=== PATIENT | female | born 1970 | race Caucasian/White ===

== ENCOUNTER → 2016-10-23 | Outpatient (CLI) | payer BC ==
[2016-10-23 10:51] LABS: ABSOLUTE EOSINOPHILS # (AUTO) 0.1 10^3/uL (0.0-0.6); ABSOLUTE LYMPHOCYTES (AUTO) 1.5 10^3/uL (0.5-4.7); ABSOLUTE MONOCYTES (AUTO) 0.3 10^3/uL (0.1-1.4); ABSOLUTE NEUT (AUTO) 2.9 10^3/uL (1.7-8.2); BASOPHILS % (AUTO) 0.8 % (0-2); EOSINOPHILS % (AUTO) 2.9 % (0-6); HEMOGLOBIN 12.1 g/dL (12.0-15.5); HGB HCT DIFFERENCE 0.3; LYMPHOCYTES % (AUTO) 30.6 % (13-45); MEAN CORPUSCULAR HEMOGLOBIN 28.7 pg (27.0-33.4); MEAN CORPUSCULAR HGB CONC 33.6 g/dL (32.0-36.0); MEAN CORPUSCULAR VOLUME 85 fl (80-97); MONOCYTES % (AUTO) 5.6 % (3-13); RED BLOOD COUNT 4.22 10^6/uL (3.72-5.28); RED CELL DISTRIBUTION WIDTH 12.6 % (11.5-14.0); SEGMENTED NEUTROPHILS % (AUTO) 60.1 % (42-78); WHITE BLOOD COUNT 4.8 10^3/uL (4.0-10.5)
[2016-10-23 11:16] LABS: ALANINE AMINOTRANSFERASE 31 U/L (9-52); ALBUMIN 4.3 g/dL (3.5-5.0); ALKALINE PHOSPHATASE 54 U/L (38-126); ANION GAP 9 (5-19); ASPARTATE AMINO TRANSFERASE 23 U/L (14-36); BILIRUBIN,TOTAL 0.7 mg/dL (0.2-1.3); BLOOD UREA NITROGEN 11 mg/dL (7-20); CALCIUM 10.1 mg/dL (8.4-10.2); CARBON DIOXIDE 26 mmol/L (22-30); CHLORIDE 109 mmol/L (98-107); CREATININE RESULT 0.87 mg/dL (0.52-1.25); GLUCOSE 93 mg/dL (75-110); POTASSIUM 4.7 mmol/L (3.6-5.0); SODIUM 143.7 mmol/L (137-145); TOTAL PROTEIN 7.3 g/dL (6.3-8.2)
== END ==
LOC: OD 09:31
PROVIDERS: ATTEND Nurse Practitioner
DX: E53.8 Deficiency of other specified B group vitamins (principal); D50.9 Iron deficiency anemia, unspecified; N92.0 Excessive and frequent menstruation with regular cycle; E55.9 Vitamin D deficiency, unspecified
CPT/HCPCS: 36415; 80053; 82306; 82607; 82728; 83540; 83550; 85025

== ENCOUNTER 2016-12-14 11:07 | Emergency (ER) | payer BC ==
[2016-12-14] MEDS ORDERED: IPRATROPIUM/ALBUTEROL 0.5-2.5 MG/3 ML AMPUL NEB ONE (11:19)
--- NOTE | 2016-12-14 11:22 | ER Document Report ---
ED Medical Screen (RME) - General Chief Complaint: Breathing Difficulty Stated Complaint: COUGH,PAIN IN RIB TRAVEL OUTSIDE OF THE [place] IN LAST 30 DAYS: No - HPI Notes: 12/14/16 11:22 Cough and rib pain - Related Data Allergies/Adverse Reactions: acetaminophen [From Percocet] Adverse Reaction (Verified 12/14/16 11:09) Headache oxycodone [From Percocet] Adverse Reaction (Verified 12/14/16 11:09) Headache Past Medical History Renal/ Medical History: Denies: Hx Peritoneal Dialysis GI Medical History: Reports: Hx Gastroesophageal Reflux Disease, Hx Endoscopy Musculoskeltal Medical History: Reports Hx Arthritis Past Surgical History: Reports: Hx Adenoidectomy, Hx Cholecystectomy, Hx Myringotomy, Hx Tonsillectomy, Hx Tubal Ligation - Immunizations Hx Diphtheria, Pertussis, Tetanus Vaccination: Yes Review of Systems - Review of Systems Respiratory: Cough Physical Exam - Vital signs Vitals: Temp Pulse Resp BP Pulse Ox 98.1 F 91 18 144/89 H 98 12/14/16 11:11 12/14/16 11:11 12/14/16 11:11 12/14/16 11:11 12/14/16 11:11 - Respiratory Respiratory status: No respiratory distress Chest status: Nontender Breath sounds: Normal Chest palpation: Normal Course - Vital Signs Vital signs: Temp Pulse Resp BP Pulse Ox 98.1 F 91 18 144/89 H 98 12/14/16 11:11 12/14/16 11:11 12/14/16 11:11 12/14/16 11:11 12/14/16 11:11
--- NOTE | 2016-12-14 11:48 | ER Document Report ---
HPI - HPI Patient complains to provider of: cough Onset: Other - 2 days Onset/Duration: Persistent Quality of pain: Achy Pain Level: 1 Context: Patient presents complaining of cough and congestion for the past 2 days. Patient complains of lower rib tenderness when coughing only. Patient denies any fever. Associated Symptoms: Nonproductive cough. denies: Fever Exacerbated by: Coughing Relieved by: Remaining still Similar symptoms previously: Yes Recently seen / treated by doctor: No - ROS ROS below otherwise negative: Yes Systems Reviewed and Negative: Yes All other systems reviewed and negative - CONSTITUTIONAL Constitutional: DENIES: Fever, Chills - EENT EENT: REPORTS: Congestion. DENIES: Sore Throat - RESPIRATORY Respiratory: REPORTS: Coughing. DENIES: Trouble Breathing - GASTROINTESTINAL Gastrointestinal: DENIES: Abdominal Pain, Nausea, Patient vomiting - MUSCULOSKELETAL Musculoskeletal: DENIES: Back Pain - DERM Skin Color: Normal Skin Problems: None Past Medical History - General Information source: Patient - Social History Smoking Status: Never Smoker Frequency of alcohol use: Occasional Drug Abuse: None Occupation: nursing teacher Lives with: Family Family History: Arthritis, CAD, DM, Hyperlipidemia, Hypertension, Malignancy. denies: COPD, CVA, Thyroid Disfunction Patient has suicidal ideation: No Patient has homicidal ideation: No Renal/ Medical History: Denies: Hx Peritoneal Dialysis GI Medical History: Reports: Hx Gastroesophageal Reflux Disease, Hx Endoscopy Musculoskeltal Medical History: Reports Hx Arthritis Past Surgical History: Reports: Hx Adenoidectomy, Hx Cholecystectomy, Hx Myringotomy, Hx Tonsillectomy, Hx Tubal Ligation - Immunizations Hx Diphtheria, Pertussis, Tetanus Vaccination: Yes Vertical Provider Document - CONSTITUTIONAL Agree With Documented VS: Yes Exam Limitations: No Limitations General Appearance: WD/WN, No Apparent Distress - INFECTION CONTROL TRAVEL OUTSIDE OF THE [place] IN LAST 30 DAYS: No - HEENT HEENT: Atraumatic, Normocephalic - NECK Neck: Normal Inspection, Supple - RESPIRATORY Respiratory: No Respiratory Distress, Wheezing - With cough only. negative: Chest Non-Tender - Lower anterior rib tenderness with cough only O2 Sat by Pulse Oximetry: 98 - CARDIOVASCULAR Cardiovascular: Regular Rate, Regular Rhythm, No Murmur - BACK Back: Normal Inspection - MUSCULOSKELETAL/EXTREMETIES Musculoskeletal/Extremeties: COLLINS MONTOYA - NEURO Level of Consciousness: Awake, Alert, Appropriate Motor/Sensory: No Motor Deficit - DERM Integumentary: Warm, Dry, No Rash Course - Re-evaluation Re-evalutation: 12/14/16 12:05 Wheezing resolved after nebulizer treatment. Discussed results of patient's x- ray with patient. Discussed worsening signs or symptoms that patient should return immediately for. Patient verbalized understanding and agrees with plan of care. - Vital Signs Vital signs: Temp Pulse Resp BP Pulse Ox 98.1 F 91 18 144/89 H 98 12/14/16 11:11 12/14/16 11:11 12/14/16 11:11 12/14/16 11:11 12/14/16 11:11 - Diagnostic Test Radiology reviewed: Image reviewed, Reports reviewed Discharge - Discharge Clinical Impression: Elevated blood pressure reading, Bronchospasm Upper respiratory infection Qualifiers: URI type: unspecified URI Qualified Code(s): J06.9 - Acute upper respiratory infection, unspecified Condition: Stable Disposition: HOME, SELF-CARE Additional Instructions: Return immediately for any new or worsening symptoms Followup with your primary care provider, call tomorrow to make a followup appointment Your blood pressure was mildly elevated today, recheck with your primary doctor in 2 days to have this reevaluated. UPPER RESPIRATORY ILLNESS: You have a viral infection of the respiratory passages -- a "cold." This common infection causes nasal congestion, drainage, and often sore throat and cough. It is highly contagious. The disease usually lasts about 10 to 14 days. There is no "cure" for the viral infection -- it must run its course. If there is a complication, such as bacterial infection in the nose, sinuses, middle ear, or bronchial tubes, antibiotics may be required. The antibiotics won't affect the virus. Drink plenty of fluids. A humidifier may help. An expectorant medication or decongestant may make you more comfortable. Use acetaminophen or ibuprofen for fever or aches. See the doctor if fever persists over two days, if there is any significant worsening of your symptoms, or if you simply fail to improve as expected. BRONCHOSPASM: You have tightness in the bronchial tubes, called bronchospasm. This often occurs with bronchial infections. Allergies, inhaled chemicals, and polluted or cold air can also provoke bronchospasm. It's more likely in patients with asthma in the family. Emergency treatment of bronchospasm may include adrenaline shots or bronchodilator aerosol. You may feel lightheaded and have a rapid pulse for an hour or two. Rest and get plenty of fluids. At home, we'll treat you with a bronchodilator inhaler. Antibiotics and corticosteroids may be required for some patients. Until you recover, avoid chemical fumes, dusts, pollens, and exercising in very cold or dry air. If you smoke, stop now!! If you develop a fever, increased wheezing, chest pain, or severe shortness of breath, you should contact the doctor immediately. INHALED BRONCHODILATORS: You have received a treatment of and/or prescription for an inhaled bronchodilator -- a medication which stimulates the airways in the lung to dilate. This improves the flow of air in asthma, bronchitis, and emphysema. These medicines have some similarity to adrenaline, and can cause similar side effects: shakiness, racing heart, and a sense of nervousness. These side effects decrease with time. Contact your doctor if these side effects are severe. Do not over-use the medicine. Too-frequent use of the inhaler may make it ineffective. Call your doctor if the inhaler is not controlling your symptoms at the prescribed doses. STEROID MEDICATION: You have been given an injection of or oral medicine of the cortisone/ steroid class. This medication is used to control inflammation or allergy. Kj t is usually only given for a short period of time, until the acute process subsides. There are usually no side effects from short-term use of cortisone-like medications. Some persons feel an increased sense of well-being and are not sleepy at bedtime. Long-term use of cortisone medications is best avoided, unless required for a severe condition. If your condition does not remit, or relapses after the course of corticosteroid medication, you should consult your physician. USE OF ACETAMINOPHEN (Tylenol): Acetaminophen may be taken for pain relief or fever control. It's much safer than aspirin, offering a wider range of "safe" dosages. It is safe during . Some brand names are Tylenol, Panadol, Datril, Anacin 3, Tempra, and Liquiprin. Acetaminophen can be repeated every four hours. The following are maximum recommended dosages: >89 pounds or adults 650 mg to 900 mg Acetaminophen can be repeated every four hours. Maximum dose not to exceed 4000 mg a day. FOLLOW-UP CARE: If you have been referred to a physician for follow-up care, call the physician s office for an appointment as you were instructed or within the next two days. If you experience worsening or a significant change in your symptoms, notify the physician immediately or return to the Emergency Department at any time for re-evaluation. Prescriptions: Albuterol Sulfate [Ventolin Hfa] 2 puff IH Q4HP PRN #17 gm PRN Reason: Benzonatate [Tessalon Perle 100 mg Capsule] 100 mg PO Q8HP PRN #20 cap PRN Reason: Naproxen [Naprosyn 250 Nmg Tablet] 1 tab PO BID #14 tablet Prednisone [Deltasone 20 mg Tablet] 3 tab PO DAILY 5 Days Forms: Return to Work Referrals: MATTHEW SANDERS NP [Primary Care Provider] - Follow up tomorrow
[2016-12-14 12:44] VITALS: BP 130/78
== END 2016-12-14 12:44 | disposition home or self-care (01) ==
LOC: ER 11:07
DX: J98.01 Acute bronchospasm (principal); R05 Cough; R06.2 Wheezing; R03.0 Elevated blood-pressure reading, without diagnosis of hypertension
CPT/HCPCS: 94640; 99284; 71020; J7620

== ENCOUNTER 2017-05-30 09:29 | Emergency (ER) | payer OTHER, BC ==
[2017-05-30 09:37] VITALS: BP 141/81
[2017-05-30] MEDS ORDERED: IBUPROFEN 800 MG TABLET PO ONE (09:43)
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
== END 2017-05-30 10:30 | disposition home or self-care (01) ==
LOC: ER 09:29
DX: S63.91XA Sprain of unspecified part of right wrist and hand, initial encounter (principal); M79.641 Pain in right hand; Y04.2XXA Assault by strike against or bumped into by another person, initial encounter; Y93.89 Activity, other specified; Y99.0 Civilian activity done for income or pay; R03.0 Elevated blood-pressure reading, without diagnosis of hypertension
CPT/HCPCS: 99283

== ENCOUNTER → 2017-10-06 | Outpatient (CLI) | payer SELFPAY ==
[2017-10-07 13:43] LABS: ANTINUCLEAR ANTIBODIES Negative (Negative)
== END ==
LOC: LAB 07:39
PROVIDERS: ATTEND Nurse Practitioner
DX: G43.919 Migraine, unspecified, intractable, without status migrainosus (principal)
CPT/HCPCS: 36415; 86038

== ENCOUNTER 2017-10-28 06:02 | Observation (INO) | payer BC ==
[2017-10-28] MEDS ORDERED: ASPIRIN 81 MG TABLET, CHEWABLE PO ONE (06:24)
--- NOTE | 2017-10-28 07:08 | ER Document Report ---
ED Medical Screen (RME) - General Chief Complaint: Chest Pain Stated Complaint: CHEST PAIN AND ARM PAIN Time Seen by Provider: 10/28/17 07:07 TRAVEL OUTSIDE OF THE [place] IN LAST 30 DAYS: No - Related Data Allergies/Adverse Reactions: acetaminophen [From Percocet] Adverse Reaction (Verified 10/28/17 06:03) Headache oxycodone [From Percocet] Adverse Reaction (Verified 10/28/17 06:03) Headache Past Medical History Neurological Medical History: Reports: Hx Migraine Renal/ Medical History: Denies: Hx Peritoneal Dialysis GI Medical History: Reports: Hx Gastroesophageal Reflux Disease, Hx Endoscopy Musculoskeltal Medical History: Reports Hx Arthritis Past Surgical History: Reports: Hx Adenoidectomy, Hx Cholecystectomy, Hx Myringotomy, Hx Tonsillectomy, Hx Tubal Ligation - Immunizations Hx Diphtheria, Pertussis, Tetanus Vaccination: Yes Physical Exam - Vital signs Vitals: Temp Pulse Resp BP Pulse Ox 98.3 F 65 20 142/81 H 99 10/28/17 06:16 10/28/17 06:16 10/28/17 06:16 10/28/17 06:16 10/28/17 06:16 Course - Vital Signs Vital signs: Temp Pulse Resp BP Pulse Ox 98.3 F 65 19 112/77 97 10/28/17 06:16 10/28/17 06:16 10/28/17 10:46 10/28/17 10:46 10/28/17 10:45 - Laboratory Result Diagrams: 10/28/17 06:58 10/28/17 06:58 Laboratory results interpreted by me: 10/28/17 06:58 Chloride 112 H Carbon Dioxide 18 L Doctor's Discharge - Discharge Clinical Impression: Unstable angina Clinical Impression: (Ruled Out): Chest pain Condition: Good Disposition: ADMITTED OBSERVATION
[2017-10-28 07:12] LABS: ABSOLUTE BASOPHILS # (AUTO) 0.1 10^3/uL (0.0-0.2); ABSOLUTE LYMPHOCYTES (AUTO) 1.5 10^3/uL (0.5-4.7); ABSOLUTE MONOCYTES (AUTO) 0.3 10^3/uL (0.1-1.4); ABSOLUTE NEUT (AUTO) 4.3 10^3/uL (1.7-8.2); BASOPHILS % (AUTO) 1.2 % (0-2); EOSINOPHILS % (AUTO) 0.4 % (0-6); HEMATOCRIT 38.5 % (36.0-47.0); HEMOGLOBIN 12.7 g/dL (12.0-15.5); LYMPHOCYTES % (AUTO) 23.9 % (13-45); MEAN CORPUSCULAR HEMOGLOBIN 28.5 pg (27.0-33.4); MEAN CORPUSCULAR HGB CONC 33.1 g/dL (32.0-36.0); MEAN CORPUSCULAR VOLUME 86 fl (80-97); MONOCYTES % (AUTO) 5.2 % (3-13); PLATELET COUNT 275 10^3/uL (150-450); RED BLOOD COUNT 4.47 10^6/uL (3.72-5.28); RED CELL DISTRIBUTION WIDTH 13.8 % (11.5-14.0); SEGMENTED NEUTROPHILS % (AUTO) 69.3 % (42-78); TOTAL CELLS COUNTED % (AUTO) 100 %; WHITE BLOOD COUNT 6.2 10^3/uL (4.0-10.5)
[2017-10-28 07:36] LABS: ALANINE AMINOTRANSFERASE 19 U/L (9-52); ALBUMIN 4.2 g/dL (3.5-5.0); ALKALINE PHOSPHATASE 42 U/L (38-126); ANION GAP 13 (5-19); ASPARTATE AMINO TRANSFERASE 23 U/L (14-36); BILIRUBIN,DIRECT 0.3 mg/dL (0.0-0.4); BILIRUBIN,TOTAL 0.3 mg/dL (0.2-1.3); BLOOD UREA NITROGEN 15 mg/dL (7-20); CALCIUM 9.3 mg/dL (8.4-10.2); CARBON DIOXIDE 18 mmol/L (22-30); CHLORIDE 112 mmol/L (98-107); CREATINE KINASE 93 U/L (30-135); GLUCOSE 109 mg/dL (75-110); POTASSIUM 4.5 mmol/L (3.6-5.0); SODIUM 142.7 mmol/L (137-145); TOTAL PROTEIN 7.4 g/dL (6.3-8.2)
--- NOTE | 2017-10-28 08:07 | RADIOLOGY REPORT (SQ) ---
EXAM DESCRIPTION: CHEST SINGLE VIEW COMPLETED DATE/TIME: 10/28/2017 7:06 am REASON FOR STUDY: chest pain COMPARISON: Two-view chest 04/14/2016, 12/14/2016 EXAM PARAMETERS: NUMBER OF VIEWS: One view. TECHNIQUE: Single frontal radiographic view of the chest acquired. RADIATION DOSE: NA LIMITATIONS: None. FINDINGS: LUNGS AND PLEURA: No opacities, masses or pneumothorax. No pleural effusion. MEDIASTINUM AND HILAR STRUCTURES: No masses. Contour normal. HEART AND VASCULAR STRUCTURES: Heart normal in size. Normal vasculature. BONES: No acute findings. HARDWARE: None in the chest. OTHER: No other significant finding. IMPRESSION: NO ACUTE RADIOGRAPHIC FINDING IN THE CHEST. TECHNICAL DOCUMENTATION: JOB ID: [id number] [employer]- All Rights Reserved Reading location - IP/workstation name: [email or web address]
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
[2017-10-28] MEDS ORDERED: NORMAL SALINE 1000 ML 1,000 ML IV PRN (10:19)
[2017-10-28] MEDS ORDERED: NITROGLYCERIN 0.4 MG/TAB 25 TAB/BOTTLE SL PRN (10:20)
--- NOTE | 2017-10-28 11:02 | ER Document Report ---
ED General - General Chief Complaint: Chest Pain Stated Complaint: CHEST PAIN AND ARM PAIN Time Seen by Provider: 10/28/17 07:07 Mode of Arrival: Ambulatory Information source: Patient, Relative - TRAVEL OUTSIDE OF THE [place] IN LAST 30 DAYS: No - HPI Notes: 47-year-old female with a past medical history of migraines, anemia, acid reflux presents today with complaints of substernal chest pain that radiates to her left and right arm that also radiates to her back and feels like she is having a pulling sensation. at 0200, Patient reports initially what woke her up was her migraine, states her migraine felt like her typical migraine and took Imitrex 100 mg. States chest pain started at 0400 this morning, lasted for about 45 minutes. Reports she also experienced nausea. Reports pain was 9 out of 10 when she is experiencing. Chest pain resolved and she came to the emergency room at 0600. Patient is seen by neurologist at [facility] , was seen yesterday. Patient states that she takes Topamax, and just started propranolol 80 mg once a day week ago. Patient did not take her propranolol today. Patient denies a previous cardiac history. Reports she was a smoker for pack a day 27 years but quit 7 years ago. Reports her mother has hypercholesterolemia and hypertension as well as 6 parenting a stroke but she is not sure when that happened. Her father's history is unknown since she is estranged from him since she was a child. Denies fevers, chills, palpitations, shortness of breath, dyspnea, vomiting, diarrhea, abdominal pain, hematuria, blurred vision, double vision, loss of vision, speech changes, LH, dizziness, syncope, headaches, wheezing, ST, URI, neck pain, weakness, bowel or bladder dysfunction, saddle anesthesia, numbness or tingling in bilateral upper or lower extremities equally, muscle paralysis, weakness in bilateral upper or lower extremities equally or rash. Denies IV drug use. - Related Data Allergies/Adverse Reactions: acetaminophen [From Percocet] Adverse Reaction (Verified 10/28/17 06:03) Headache oxycodone [From Percocet] Adverse Reaction (Verified 10/28/17 06:03) Headache Past Medical History - General Information source: Patient, Relative - son - Social History Smoking Status: Former Smoker Family History: Arthritis, CAD, DM, Hyperlipidemia, Hypertension, Malignancy. denies: COPD, CVA, Thyroid Disfunction Patient has suicidal ideation: No Patient has homicidal ideation: No Neurological Medical History: Reports: Hx Migraine Renal/ Medical History: Denies: Hx Peritoneal Dialysis GI Medical History: Reports: Hx Gastroesophageal Reflux Disease, Hx Endoscopy Musculoskeltal Medical History: Reports Hx Arthritis Past Surgical History: Reports: Hx Adenoidectomy, Hx Cholecystectomy, Hx Myringotomy, Hx Tonsillectomy, Hx Tubal Ligation - Immunizations Hx Diphtheria, Pertussis, Tetanus Vaccination: Yes Review of Systems - Review of Systems Constitutional: No symptoms reported EENT: No symptoms reported Cardiovascular: See HPI Respiratory: No symptoms reported Gastrointestinal: No symptoms reported Genitourinary: No symptoms reported Female Genitourinary: No symptoms reported Musculoskeletal: No symptoms reported Skin: No symptoms reported Hematologic/Lymphatic: No symptoms reported Neurological/Psychological: No symptoms reported Physical Exam - Vital signs Vitals: Temp Pulse Resp BP Pulse Ox 98.3 F 65 20 142/81 H 99 10/28/17 06:16 10/28/17 06:16 10/28/17 06:16 10/28/17 06:16 10/28/17 06:16 - Notes Notes: REVIEW OF SYSTEMS: CONSTITUTIONAL : Denies fever, chills, or sweats. Denies recent illness. PHYSICAL EXAMINATION: GENERAL: Well-appearing, well-nourished and in no acute distress. HEAD: Atraumatic, normocephalic. EYES: Pupils equal round and reactive to light, extraocular movements intact, conjunctiva are normal. ENT: Nares patent, oropharynx clear without exudates. Moist mucous membranes. NECK: Normal range of motion, supple without lymphadenopathy LUNGS: Breath sounds clear to auscultation bilaterally and equal. No wheezes rales or rhonchi. HEART: bradycardia, sinus rhythm without murmurs. Unable to reproduce chest pain that brought patient into the emergency room. ABDOMEN: Soft, nontender, nondistended abdomen. No guarding, no rebound. No masses appreciated. Female : deferred Musculoskeletal: Normal range of motion, no pitting or edema. No cyanosis. NEUROLOGICAL: Cranial nerves grossly intact. Normal speech, normal gait. Normal sensory, motor exams PSYCH: Normal mood, normal affect. SKIN: Warm, Dry, normal turgor, no rashes or lesions noted. Dictation was performed using Dragon voice recognition software Course - Re-evaluation Re-evalutation: 10/28/17 11:16 A healthy 48-year-old female presents to the emergency room today with sudden onset substernal chest pain that radiated to her left arm with associated nausea. Initial cardiac lab values were negative however this is to be expected since onset of chest pain was at 0400. Patient states the EKG that was done in triage, states she was not expressing any chest pain at that time. 334mg of Baby aspirin was given in triage. CBC without any leukocytosis, anemia. CMP negative for any hepatic or kidney abnormalities, no electrolyte disturbances noted. Patient experienced similar chest pain at 1030, EKG was unchanged, however patient did experience immediate chest pain relief after taking 0.4 nitroglycerin sublingual. Discussed with patient since she did have nitroglycerin relieve her chest pain, this is highly probable that he has unstable angina. Sb with patient that she will need to be admitted for observation for further cardiac evaluation. Consulted with Dr. Loving, specialist , who will admit patient for unstable angina for observation. Because this plan of care with patient. All questions and concerns answered by this provider. She and both verbalized understanding of this plan of care and agree with plan of care. 10/28/17 11:18 - Vital Signs Vital signs: Temp Pulse Resp BP Pulse Ox 98.3 F 65 19 112/77 97 10/28/17 06:16 10/28/17 06:16 10/28/17 10:46 10/28/17 10:46 10/28/17 10:45 - Laboratory Result Diagrams: 10/28/17 06:58 10/28/17 06:58 Laboratory results interpreted by me: 10/28/17 06:58 Chloride 112 H Carbon Dioxide 18 L Discharge - Discharge Clinical Impression: Unstable angina Condition: Good Disposition: ADMITTED OBSERVATION Admitting Provider: Hospitalist - Dr. Stephen Unit Admitted: Telemetry Referrals: MATTHEW SANDERS NP [Primary Care Provider] - Follow up as needed
--- NOTE | 2017-10-28 12:08 | PDOC H&P ---
History of Present Illness Admission Date/PCP: 10/28/17 11:21 MATTHEW SANDERS NP Patient complains of: chest pain History of Present Illness: KIRTI SEBASTIAN is a 47 year old female with history of migraines who presents with chest pain that occurred this morning. Patient states that earlier this AM she had her typical migraine. She took an Imitrex however symptoms persisted. About 45 minutes later, she developed substernal chest pain with radiation to her left arm and left face. Associated symptoms included diaphoresis, questionable SOB, and nausea. Pain improved by the time she came to ED. Denies previous history of cardiac issues. She is followed by neurology for her migraines and takes Topomax and Effexor daily to migraine prevention. She also infrequently will take Imitrex for migraine-abortive properties. Over the last year, she also experiences intermittent lightheadness and dizziness. She is not exactly sure if there is always a temporal relationship with migraines. Has been worked up by PCP/Neurology however no clear etiology at this point. Denies having previous cardiac work up for this issue. While in ED, first troponin was negative and EKG showed no acute changes. She did have another witnessed episode of CP while in ED. Repeat troponin and EKG was negative. She received SL Nitro with resolution of Chest pain. States that she is feeling OK right now. Admitted to hospitalist service for further work up. Past Medical History Neurological Medical History: Reports: Migraine GI Medical History: Reports: Gastroesophageal Reflux Disease Musculoskeltal Medical History: Reports: Arthritis Past Surgical History Past Surgical History: Iron deficiency anemia Past Surgical History: Reports: Adenoidectomy, Cholecystectomy, Tonsillectomy, Tubal Ligation Social History Information Source: Patient Lives with: Spouse/Significant other Smoking Status: Former Smoker - Smoked for 27 years, 1PPD Frequency of Alcohol Use: Occasional Hx Recreational Drug Use: No Drugs: None Hx Prescription Drug Abuse: No Past Social History Note: Works as METAL FABRICATOR APPRENTICE at [employer] Family History Family History: Arthritis, CAD, DM, Hyperlipidemia, Hypertension, Malignancy. denies: COPD, CVA, Thyroid Disfunction Parental Family History Reviewed: Yes - MOther: HLD and CVA, Father: does not know Children Family History Reviewed: NA Sibling(s) Family History Reviewed.: Yes - Brother who passed from lung cancer 4 years ago Medication/Allergy Allergies/Adverse Reactions: acetaminophen [From Percocet] Adverse Reaction (Verified 10/28/17 06:03) Headache oxycodone [From Percocet] Adverse Reaction (Verified 10/28/17 06:03) Headache Review of Systems All systems: reviewed and no additional remarkable complaints except as stated Physical Exam Vital Signs: Temp Pulse Resp BP Pulse Ox 98.3 F 65 19 112/77 97 10/28/17 06:16 10/28/17 06:16 10/28/17 10:46 10/28/17 10:46 10/28/17 10:45 General appearance: PRESENT: no acute distress, cooperative, obese Head exam: PRESENT: atraumatic, normocephalic Mouth exam: PRESENT: moist Neck exam: PRESENT: full ROM. ABSENT: JVD, lymphadenopathy Respiratory exam: PRESENT: unlabored. ABSENT: tachypnea, wheezes Cardiovascular exam: PRESENT: +S1, +S2. ABSENT: systolic murmur, tachycardia Pulses: PRESENT: +2 pedal pulses bilateral Vascular exam: PRESENT: normal capillary refill GI/Abdominal exam: PRESENT: soft. ABSENT: tenderness Extremities exam: PRESENT: full ROM Musculoskeletal exam: PRESENT: full ROM Neurological exam: PRESENT: alert, awake, CN II-XII grossly intact. ABSENT: aphasic Psychiatric exam: PRESENT: appropriate affect, normal mood. ABSENT: agitated, anxious Results Impressions: Chest X-Ray 10/28/17 06:24 IMPRESSION: NO ACUTE RADIOGRAPHIC FINDING IN THE CHEST. Chest/Abdomen CTA 10/28/17 07:57 IMPRESSION: NORMAL CTA OF THE CHEST. NO PULMONARY EMBOLI. Assessment & Plan - Diagnosis (1) Angina at rest Is this a current diagnosis for this admission?: Yes Plan: Admitted for classic symptoms of angina, however no EKG symptoms or troponin elevations - Risk factors: age, previous smoking history, and weight. Family history if unclear - Admit to tele-obs - Received ASA full dose, continue ASA 81mg - Nitro SL PRN - Not actively having pain, but would be OK to give morphine if required - Blood pressure is stable, currently on Propanolol at home for migraines - Treadmill stress test ordered (2) Migraines Qualifiers: Migraine type: unspecified Status migrainosus presence: without status migrainosus Intractability: not intractable Qualified Code(s): G43.909 - Migraine, unspecified, not intractable, without status migrainosus Is this a current diagnosis for this admission?: No Plan: History of migraines, followed by Neurology in [place] - Awaiting med reconciliation however patient takes Topomax, Propanolol, and Effexor. Also uses Imitrex PRN (3) Obesity (BMI 35.0-39.9 without comorbidity) Is this a current diagnosis for this admission?: Yes Plan: Counseled on importance of balanced diet and exercise (4) Lightheadedness Is this a current diagnosis for this admission?: No Plan: Chronic issue for last 2 years - Being worked up my PCP/neurologist. Has had head imaging, LP, however no primary cardiac work up - Suggested that a holter/events monitor may be necessary as an outpatient to assess for arrhythmia - Will keep on senior pharmacy technician while admitted - Time Time Spent: 50 to 70 Minutes Critical Time spent with patient: 15-24 minutes Anticipated discharge: Home Within: within 24 hours
[2017-10-28] MEDS ORDERED: IBUPROFEN 800 MG TABLET PO PRN (16:42)
[2017-10-28] MEDS ORDERED: SUMATRIPTAN SUCCINATE 100 MG TABLET PO PRN (17:30)
[2017-10-28] MEDS ORDERED: TOPIRAMATE 75 MG PO SCH (18:00)
[2017-10-28] MEDS ORDERED: LANSOPRAZOLE 30 MG TAB.RAP.DR PO ONE (18:15)
[2017-10-28] MEDS: TOPIRAMATE 25 MG TABLET PO SCH (21:14)
--- NOTE | 2017-10-28 21:55 | EKG REPORT ---
SEVERITY:- NORMAL ECG - SINUS RHYTHM : Confirmed by: Supriya Collado 28-Oct-2017 21:53:50
--- NOTE | 2017-10-28 21:55 | EKG REPORT ---
SEVERITY:- NORMAL ECG - SINUS RHYTHM : Confirmed by: Supriya Collado 28-Oct-2017 21:53:59
[2017-10-28] MEDS ORDERED: VENLAFAXINE HCL 75 MG TABLET PO SCH (22:00)
[2017-10-28] MEDS ORDERED: ATORVASTATIN CALCIUM 40 MG TABLET PO SCH (22:00)
[2017-10-28] MEDS ORDERED: VENLAFAXINE HCL 75 MG PO SCH (22:00)
[2017-10-29] MEDS ORDERED: LANSOPRAZOLE 15 MG TAB.RAP.DR PO SCH (06:00)
[2017-10-29 07:59] LABS: ANION GAP 9 (5-19); BLOOD UREA NITROGEN 11 mg/dL (7-20); CALCIUM 9.2 mg/dL (8.4-10.2); CARBON DIOXIDE 21 mmol/L (22-30); CHLORIDE 112 mmol/L (98-107); CHOLESTEROL 161.45 mg/dL (0-200); GLUCOSE 99 mg/dL (75-110); POTASSIUM 4.3 mmol/L (3.6-5.0); SODIUM 141.7 mmol/L (137-145); TRIGLYCERIDES 72 mg/dL (<150)
[2017-10-29 08:09] LABS: DIRECT LDL 103 mg/dL (<100)
[2017-10-29] MEDS ORDERED: (PENDING PHARMACY ID) (Esomeprazole Magnesium [Nexium 24hr] 20 MG) PO SCH (10:00)
[2017-10-29] MEDS ORDERED: ASPIRIN 81 MG TABLET, CHEWABLE PO SCH (10:00)
[2017-10-29] MEDS: TOPIRAMATE 25 MG TABLET PO SCH (11:14)
[2017-10-29] MEDS ORDERED: LANSOPRAZOLE 15 MG TAB.RAP.DR PO ONE (13:00)
--- NOTE | 2017-10-29 14:06 | DRAGON STRESS TEST REPORT ---
EXERCISE CARDIOLITE STRESS TEST USING SINGLE PHOTON EMMISION COMPUTERIZED TOMOGRAPHIC. DATE OF PROCEDURE: October 29, 2017, INDICATION : Chest pain CARDIAC RISK FACTORS: Dyslipidemia RESTING EKG: Sinus rhythm, no baseline ST-T wave changes noted REASON FOR TERMINATION: Fatigue, tiredness and chest discomfort. PROCEDURE REPORT: Baseline heart rate 65 beats per minute with blood pressure of 122/80. Patient had no significant complaints. Patient was exercised on a standard Hubert protocol. Patient exercised for a total of 5 minutes and 01 seconds. Peak heart rate 160 which is 93 % of predicted maximum. Peak blood pressure 167/92. Double product was noted to be 21.65 kcal. Mild increased ventricular ectopic activity noted. Baseline artifacts were noted but no definitive EKG ST segment changes were noted. Patient did complain of increased chest discomfort at peak exercise, 5 out of 10 but she is started out with 2 out of 10 during the start of stress test. IMPRESSION EXERCISE PART: [exercise tolerance for patient's age]. No significant EKG ST segment changes with exercise. NUCLEAR DATA: At rest the patient was given 15.6 millicuries of technetium 99 sestamibi injected intravenously. As per protocol rest gated SPECT images were obtained. Subsequently the stress dose of 44.4 millicuries of technetium 99 sestamibi was injected intravenously at peak exercise and patient continued to exercise for 1 to 2 additional minute. As per protocol stress gated images were obtained. NUCLEAR INTERPRETATION: Both raw and processed data were used for interpretation. Visual, qualitative, computer-generated quantitative data was used. There was good myocardial uptake of technetium compound. Motion artifact and soft tissue attenuations were noted. Increased visceral uptake was noted. No definitive areas of transient perfusion defect noted. No definitive areas of fixed perfusion defect or scars noted. EKG gated imaging showed LV EF at 44 %, rest and stress gated EF similar visually. T. I D. ratio was 1.13. Lung heart ratio noted to be within normal limits 0.23. No significant extracardiac and abnormal radiotracer activities were noted. RV free wall uptake was noted to be WNL. IMPRESSION: Also refer to comments under nuclear interpretation. Also test results needs to be interpreted in the context of pretest probability. 1. There is no definitive scintigraphic evidence of exercise induced myocardial ischemia at achieved double product. 2. There is no definitive scintigraphic evidence of myocardial infarction/scar. 3. EKG gated imaging shows left ejection fraction of approximately 44 %. 4. Patient noted to have below average exercise tolerance. Patient had adequate heart rate response. BP response adequate. No significant EKG changes were noted with exercise at adequate double product. 5. Patient did have chest pain at peak exercise, therefore would recommend clinical correlation. RECOMMENDATIONS: Aggressive risk factor modification, medical therapy. Further evaluation may be needed if patient continues with significant symptoms or has other high risk features. Clinical correlation with echocardiogram derived ejection fraction. Consider cardiology consultation and or follow-up if clinically indicated. I AM AVAILABLE FOR CARDIOLOGY CONSULTATION AND FOLLOWUP IF REQUESTED BY PMD Supriya Collado M.D., LATOYA Crew Caller remedial teacher, Board certified in cardiovascular diseases, Nuclear cardiology, Echocardiography Cardiac CT and cardiac MRI Ph. [phone] [facility]us
[2017-10-29 15:27] VITALS: BP 134/85
--- NOTE | 2017-10-29 17:41 | PDOC DISCHARGE SUMMARY ---
General - Admit/Disc Date/PCP Admission Date/Primary Care Provider: 10/28/17 11:21 MATTHEW SANDERS NP Discharge Date: 10/29/17 - Discharge Diagnosis (1) Chest pain Is this a current diagnosis for this admission?: Yes (2) Migraines Is this a current diagnosis for this admission?: Yes (3) Obesity (BMI 35.0-39.9 without comorbidity) Is this a current diagnosis for this admission?: Yes (4) GERD (gastroesophageal reflux disease) Is this a current diagnosis for this admission?: Yes - Additional Information Resuscitation Status: Full Code Discharge Diet: As Tolerated Discharge Activity: Activity As Tolerated Home Medications: Cholecalciferol (Vitamin D3) [Vitamin D3] 5,000 units PO DAILY 10/28/17 Cyanocobalamin (Vitamin B-12) [Vitamin B12] 2,500 mcg PO DAILY 10/28/17 Esomeprazole Magnesium [Nexium 24Hr] 20 mg PO DAILY 10/28/17 Norethindrone-E.estradiol-Iron [Microgestin Fe 1.5-30 Tab] 1 tab PO DAILY Propranolol HCl [Propranolol HCl ER] 80 mg PO DAILY 10/28/17 Sumatriptan Succinate [Imitrex 100 mg Tablet] 100 mg PO DAILYP PRN 10/28/17 Topiramate [Topamax] 75 mg PO BID 10/28/17 Triamcinolone Acetonide [Nasacort] 2 spray NASL DAILY 10/28/17 Venlafaxine HCl [Effexor] 75 mg PO QHS 10/28/17 History of Present Illness History of Present Illness: KIRTI SEBASTIAN is a 47 year old female with history of migraines who presents with chest pain that occurred on the day of admission. Patient stated that earlier she had her typical migraine. She took an Imitrex however symptoms persisted. About 45 minutes later, she developed substernal chest pain with radiation to her left arm and left face. Associated symptoms included diaphoresis, questionable SOB, and nausea. Pain improved by the time she arrived to ED. Denies previous history of cardiac issues. She is followed by neurology for her migraines and takes Topomax and Effexor daily to migraine prevention. She also infrequently will take Imitrex for migraine-abortive properties. Over the last year, she also had experienced intermittent lightheadness and dizziness. She was not exactly sure if there is always a temporal relationship with migraines. Has been worked up by PCP/Neurology however no clear etiology at this point. Denies having previous cardiac work up for this issue. While in ED, first troponin was negative and EKG showed no acute changes. She did have another witnessed episode of CP while in ED. Repeat troponin and EKG was negative. She received SL Nitro with resolution of chest pain. Admitted to hospitalist service for further work up Hospital Course Hospital Course: Patient was admitted to telemetry unit. There were no cardiac dysrhythmias. Troponin was trended and negative. Patient underwent nuclear stress test which did not show ischemia. Ejection fraction was 44% and there was a recommendation to follow-up with echocardiogram and we felt this could be done as outpatient. Patient had been advised as to follow-up with PCP for further evaluation. There is a good possibility that chest pain could have been precipitated by Imitrex. Since patient had achieved maximum benefit of hospitalization stay prompted to discharge under stable condition Physical Exam Vital Signs: Temp Pulse Resp BP Pulse Ox 98.4 F 49 L 20 101/64 99 10/29/17 03:20 10/29/17 03:20 10/29/17 03:20 10/29/17 03:20 10/29/17 03:20 Intake & Output 10/28/17 10/29/17 10/30/17 06:59 06:59 06:59 Intake Total 243 Output Total 400 Balance -157 Weight 108.4 kg General appearance: PRESENT: cooperative, obese Head exam: PRESENT: atraumatic, normocephalic Eye exam: PRESENT: conjunctiva pink, EOMI, PERRLA Ear exam: PRESENT: normal external ear exam Mouth exam: PRESENT: moist Neck exam: PRESENT: full ROM. ABSENT: JVD, lymphadenopathy, tenderness Respiratory exam: PRESENT: clear to auscultation roz Cardiovascular exam: PRESENT: RRR. ABSENT: diastolic murmur, systolic murmur GI/Abdominal exam: PRESENT: normal bowel sounds, soft. ABSENT: tenderness Extremities exam: PRESENT: full ROM. ABSENT: pedal edema Musculoskeletal exam: PRESENT: ambulatory Neurological exam: PRESENT: alert, awake, oriented to person, oriented to place , oriented to time, oriented to situation, CN II-XII grossly intact Psychiatric exam: PRESENT: appropriate affect, normal mood Skin exam: PRESENT: intact, normal color Results Laboratory Results: 10/28/17 14:37 Troponin I < 0.012 Impressions: Chest X-Ray 10/28/17 06:24 IMPRESSION: NO ACUTE RADIOGRAPHIC FINDING IN THE CHEST. Chest/Abdomen CTA 10/28/17 07:57 IMPRESSION: NORMAL CTA OF THE CHEST. NO PULMONARY EMBOLI. Qualifiers - * PATEINT BEING DISCHARGED WITH ANY OF THE FOLLOWING DIAGNOSIS?: No Plan Discharge Plan: Discharge home Time Spent: Less than 30 Minutes
== END 2017-10-29 15:51 | disposition home or self-care (01) ==
LOC: ER 06:02 → EH 11:21 → 4N 13:08
PROVIDERS: ADMIT Emergency Medicine; ATTEND Emergency Medicine
DX: R07.2 Precordial pain (principal); G43.909 Migraine, unspecified, not intractable, without status migrainosus; E66.9 Obesity, unspecified; Z68.37 Body mass index [BMI] 37.0-37.9, adult; K21.9 Gastro-esophageal reflux disease without esophagitis; R61 Generalized hyperhidrosis; R11.0 Nausea; R42 Dizziness and giddiness; R00.1 Bradycardia, unspecified; Z79.899 Other long term (current) drug therapy; Z90.49 Acquired absence of other specified parts of digestive tract; Z98.51 Tubal ligation status; Z87.891 Personal history of nicotine dependence; Z80.1 Family history of malignant neoplasm of trachea, bronchus and lung; Z82.3 Family history of stroke; Z98.890 Other specified postprocedural states
CPT/HCPCS: 93005; 99285; 36415 ×2; 82550; 84443; 85025; 80048; 80053; 84484; 83036; 80061; 93017; 71045; 78452; 71275; 93010; G0378 ×3; A9500; J3490 ×3; J7030; Q9969

== ENCOUNTER → 2017-11-02 | Outpatient (CLI) | payer BC ==
--- NOTE | 2017-11-02 10:24 | RADIOLOGY REPORT (SQ) ---
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 TECHNIQUE: Post IV contrast scanning, thin section axial imaging through the brain to evaluate the a rterial structures. Source and MIP images are saved and reviewed on PACS. Advanced 3D imaging as volume-rendering, MIPs, SSD performed? yes All CT scanners at this facility use dose modulation, iterative reconstruction, and/or weight based d osing when appropriate to reduce radiation dose to as low as reasonably achievable (ALARA). [facility]: Dose Right [facility]: CareDose [facility]: Dose Right [facility]: Teradose 4D [facility]: Phanfare CONTRAST TYPE AND DOSE: See separate report of the same date. RENAL FUNCTION: See separate report of the same date. LIMITATIONS: None. FINDINGS: [place]: The anterior, middle, posterior cerebral arteries are all patent. No ev idence of aneurysm or focal stenosis. POSTERIOR CIRCULATION: The distal vertebral arteries are patent as is the basilar artery. No aneurysm . BRAIN: No acute findings. BONES: Intact as visualized. SINUSES: No fluid or mucosal thickening. OTHER: No other significant finding. IMPRESSION: NO CTA EVIDENCE OF STENOSIS OR ANEURYSM OF THE [place]. TECHNICAL DOCUMENTATION: JOB ID: [id number] Quality ID # [id number]: Final reports with documentation of one or more dose reduction techniques (e.g., Au tomated exposure control, adjustment of the mA and/or kV according to patient size, use of iterative reconstruction technique) 2010 [employer]- All Rights Reserved Reading location - IP/workstation name: [email or web address]
--- NOTE | 2017-11-02 10:38 | RADIOLOGY REPORT (SQ) ---
EXAM DESCRIPTION: CTA NECK; EMPLOYEE COMPLETED DATE/TIME: 11/02/2017 10:10 am REASON FOR STUDY: OTHER HEADACHE SYNDROME (G44.89), DIZZINESS (R42), CEREBROVASCULAR DISESASE; OTHER HEADACHE SYNDROME (R R42 DIZZINESS AND GIDDINESS G44.89 OTHER HEADACHE SYNDROME I67.9 CEREBROVASC ULAR DISEASE, UNSPECIFIED COMPARISON: None. TECHNIQUE: Axial dynamic scanning technique with dynamic contrast enhancement through the extra-aircraft tool maker nial carotid and vertebral arteries. Multiplanar reconstruction. 3-D MIPS and Volume-rendered imag es acquired at the workstation and saved to PACS. Images are reviewed in soft tissue, bone, lung w indows. All CT scanners at this facility use dose modulation, iterative reconstruction, and/or weight based d osing when appropriate to reduce radiation dose to as low as reasonably achievable (ALARA). [facility]: Dose Right [facility]: CareDose [facility]: Dose Right [facility]: Teradose 4D [facility]: ArchiveSocial CONTRAST TYPE AND DOSE: contrast/concentration: Isovue 370.00 mg/ml; Total Contrast Delivered: 80.0 ml; Total Saline Delivered: 75.1 ml RENAL FUNCTION: BUN 11 creatinine 0.7 LIMITATIONS: None. FINDINGS: AORTIC ARCH: Normal three-vessel origin. Bilateral subclavian arteries are patent. No d issection. RIGHT CAROTIDS: Patent common, internal and external carotid arteries without suggestion of significa nt stenosis or irregular plaque. No dissection. RIGHT VERTEBRAL: Patent. No dissection. LEFT CAROTIDS: Patent common, internal and external carotid arteries without suggestion of significan t stenosis or irregular plaque. No dissection. LEFT VERTEBRAL: Patent. No dissection. OTHER: No other significant finding. OTHER: 3-D reconstructions confirm findings. IMPRESSION: NORMAL CTA OF THE EXTRA-CRANIAL CAROTID AND VERTEBRAL ARTERIES. COMMENT: Quality ID #195: Measurements of distal internal carotid diameter were used as the denomina tor for stenosis measurement. TECHNICAL DOCUMENTATION: JOB ID: [id number] Quality ID # 436: Final reports with documentation of one or more dose reduction techniques (e.g., Au tomated exposure control, adjustment of the mA and/or kV according to patient size, use of iterative reconstruction technique) 2010 [employer]- All Rights Reserved Reading location - IP/workstation name: [facility]-RR2
--- NOTE | 2017-11-02 10:38 | RADIOLOGY REPORT (SQ) ---
EXAM DESCRIPTION: CTA NECK; EMPLOYEE COMPLETED DATE/TIME: 11/02/2017 10:10 am REASON FOR STUDY: OTHER HEADACHE SYNDROME (G44.89), DIZZINESS (R42), CEREBROVASCULAR DISESASE; OTHER HEADACHE SYNDROME (R R42 DIZZINESS AND GIDDINESS G44.89 OTHER HEADACHE SYNDROME I67.9 CEREBROVASC ULAR DISEASE, UNSPECIFIED COMPARISON: None. TECHNIQUE: Axial dynamic scanning technique with dynamic contrast enhancement through the extra-pit crane operator nial carotid and vertebral arteries. Multiplanar reconstruction. 3-D MIPS and Volume-rendered imag es acquired at the workstation and saved to PACS. Images are reviewed in soft tissue, bone, lung w indows. All CT scanners at this facility use dose modulation, iterative reconstruction, and/or weight based d osing when appropriate to reduce radiation dose to as low as reasonably achievable (ALARA). [facility]: Dose Right [facility]: CareDose [facility]: Dose Right [facility]: Teradose 4D [facility]: DashLuxe CONTRAST TYPE AND DOSE: contrast/concentration: Isovue 370.00 mg/ml; Total Contrast Delivered: 80.0 ml; Total Saline Delivered: 75.1 ml RENAL FUNCTION: BUN 11 creatinine 0.7 LIMITATIONS: None. FINDINGS: AORTIC ARCH: Normal three-vessel origin. Bilateral subclavian arteries are patent. No d issection. RIGHT CAROTIDS: Patent common, internal and external carotid arteries without suggestion of significa nt stenosis or irregular plaque. No dissection. RIGHT VERTEBRAL: Patent. No dissection. LEFT CAROTIDS: Patent common, internal and external carotid arteries without suggestion of significan t stenosis or irregular plaque. No dissection. LEFT VERTEBRAL: Patent. No dissection. OTHER: No other significant finding. OTHER: 3-D reconstructions confirm findings. IMPRESSION: NORMAL CTA OF THE EXTRA-CRANIAL CAROTID AND VERTEBRAL ARTERIES. COMMENT: Quality ID #195: Measurements of distal internal carotid diameter were used as the denomina tor for stenosis measurement. TECHNICAL DOCUMENTATION: JOB ID: [id number] Quality ID # 436: Final reports with documentation of one or more dose reduction techniques (e.g., Au tomated exposure control, adjustment of the mA and/or kV according to patient size, use of iterative reconstruction technique) 2010 [employer]- All Rights Reserved Reading location - IP/workstation name: [facility]-[email or web address]
--- NOTE | 2017-11-02 12:02 | RADIOLOGY REPORT (SQ) ---
EXAM DESCRIPTION: MRI HEAD COMBO COMPLETED DATE/TIME: 11/02/2017 11:22 am REASON FOR STUDY: OTHER HEADACHE SYNDROME (G44.89), DIZZINESS (R42), CEREBROVASCULAR DISEASE R42 DI ZZINESS AND GIDDINESS G44.89 OTHER HEADACHE SYNDROME I67.9 CEREBROVASCULAR DISEASE, UNSPECIFIED COMPARISON: 04/14/2016 TECHNIQUE: Multiplanar imaging includes noncontrasted T1, T2, FLAIR, diffusion with ADC map and post gadolinium contrast T1 sequences. Images stored on PACS. CONTRAST TYPE AND DOSE: 20 mL Multihance. RENAL FUNCTION: Creatinine 0.7 LIMITATIONS: None. FINDINGS: ANATOMY: No anomalies. Normal vascular flow voids. Pituitary fossa normal. CSF SPACES: Dilated lateral ventricles, stable. CEREBRUM: Sulci and gyri normal in size and contour. Normal white matter signal on FLAIR imaging. No evidence of hemorrhage, mass, or extraaxial fluid collection. No abnormal enhancement post contrast. POSTERIOR FOSSA: No signal alteration. No hemorrhage. No edema, masses, or mass effect. Internal rome tory canals, cerebellopontine angles, mastoids normal. No enhancing lesions. No abnormal enhancement post contrast. DIFFUSION IMAGING: Negative for acute or subacute infarction. ORBITS: No masses. Globes normal. PARANASAL SINUSES: No fluid levels. Mucosa normal. OTHER: No other significant finding. IMPRESSION: No acute abnormality in the brain. EVIDENCE OF ACUTE STROKE: No. TECHNICAL DOCUMENTATION: JOB ID: [id number] [employer]- All Rights Reserved Reading location - IP/workstation name: [facility]
== END ==
LOC: RAD 09:28
PROVIDERS: ATTEND Nurse Practitioner
DX: G44.89 Other headache syndrome (principal); I67.9 Cerebrovascular disease, unspecified; R42 Dizziness and giddiness
CPT/HCPCS: 70553; 70496; 70498; A9577

== ENCOUNTER 2018-10-20 05:30 | Day surgery (SDC) | payer BC ==
--- NOTE | 2018-10-14 11:05 | RADIOLOGY REPORT (SQ) ---
EXAM DESCRIPTION: CHEST PA/LATERAL COMPLETED DATE/TIME: 10/14/2018 10:29 am REASON FOR STUDY: PRE-OP COMPARISON: Chest films 12/14/2016 EXAM PARAMETERS: NUMBER OF VIEWS: two views TECHNIQUE: Digital Frontal and Lateral radiographic views of the chest acquired. RADIATION DOSE: NA LIMITATIONS: none FINDINGS: LUNGS AND PLEURA: No opacities, masses or pneumothorax. No pleural effusion. MEDIASTINUM AND HILAR STRUCTURES: No masses or contour abnormalities. HEART AND VASCULAR STRUCTURES: Heart normal size. No evidence for failure. BONES: No acute findings. HARDWARE: Clips right upper quadrant post cholecystectomy. OTHER: No other significant finding. IMPRESSION: NO SIGNIFICANT RADIOGRAPHIC FINDING IN THE CHEST. TECHNICAL DOCUMENTATION: JOB ID: [id number] [employer]- All Rights Reserved Reading location - IP/workstation name: [email or web address]
[2018-10-14 12:36] LABS: APPEARANCE,URINE CLOUDY; BILIRUBIN,URINE NEGATIVE (NEGATIVE); COLOR,URINE YELLOW; GLUCOSE, URINE NEGATIVE (NEGATIVE); KETONES,URINE NEGATIVE (NEGATIVE); LEUKOCYTE ESTERASE,URINE SMALL (NEGATIVE); NITRITE,URINE NEGATIVE (NEGATIVE); PROTEIN,URINE NEGATIVE (NEGATIVE); URINE SPECIFIC GRAVITY 1.014; UROBILINOGEN,URINE NEGATIVE mg/dL (<2.0)
[2018-10-14 12:49] LABS: HEMOGLOBIN 13.1 g/dL (12.0-15.5); MEAN CORPUSCULAR HGB CONC 34.5 g/dL (32.0-36.0); MEAN CORPUSCULAR VOLUME 87 fl (80-97); PLATELET COUNT 287 10^3/uL (150-450); RED BLOOD COUNT 4.37 10^6/uL (3.72-5.28); RED CELL DISTRIBUTION WIDTH 13.2 % (11.5-14.0); WHITE BLOOD COUNT 6.4 10^3/uL (4.0-10.5)
[2018-10-14 13:10] LABS: ALANINE AMINOTRANSFERASE 32 U/L (9-52); ALBUMIN 4.3 g/dL (3.5-5.0); ALKALINE PHOSPHATASE 47 U/L (38-126); ANION GAP 11 (5-19); ASPARTATE AMINO TRANSFERASE 19 U/L (14-36); BILIRUBIN,DIRECT 0.1 mg/dL (0.0-0.4); BILIRUBIN,TOTAL 0.3 mg/dL (0.2-1.3); BLOOD UREA NITROGEN 10 mg/dL (7-20); CALCIUM 9.4 mg/dL (8.4-10.2); CARBON DIOXIDE 25 mmol/L (22-30); CHLORIDE 101 mmol/L (98-107); GLUCOSE 120 mg/dL (75-110); POTASSIUM 4.2 mmol/L (3.6-5.0); SODIUM 137.2 mmol/L (137-145)
--- NOTE | 2018-10-14 20:51 | EKG REPORT ---
SEVERITY:- ABNORMAL ECG - SINUS RHYTHM LEFT VENTRICULAR HYPERTROPHY BORDERLINE T ABNORMALITIES, INFERIOR LEADS : Confirmed by: Moraima Gamino MD 14-Oct-2018 20:50:29
[~2018-10-20 05:30] MED LIST: CEFAZOLIN 1 GM/D5W RTU 1 GM/50 ML RTUPB IV ONE; CEFAZOLIN 1 GM/D5W RTU 1 GM/50 ML RTUPB IV PRN; LACTATED RINGERS 1000 ML IV PRN; LIDOCAINE 0.5% INJ-PF (5 MG/ML) 50 ML SDV SUBCUT PRN; SCOPOLAMINE HYDROBROMIDE 1.5 MG PATCH.TD72 ONE; SCOPOLAMINE HYDROBROMIDE 1.5 MG PATCH.TD72 TD PRN
[2018-10-20] MEDS ORDERED: PROPOFOL INJ 200 MG/20 ML VIAL IV ONE (07:00)
[2018-10-20] MEDS ORDERED: EPHEDRINE SULFATE INJ 50 MG/1 ML AMPULE ONE (07:00)
[2018-10-20] MEDS ORDERED: MIDAZOLAM 2 MG/2 ML INJ ONE (07:00)
[2018-10-20] MEDS ORDERED: DEXMEDETOMIDINE INJ 80 MCG/20 ML VIAL IV ONE (07:00)
[2018-10-20] MEDS ORDERED: MORPHINE SULFATE 10 MG/ML INJ ONE (07:00)
[2018-10-20] MEDS ORDERED: FENTANYL CITRATE INJ/PF 250 MCG/5 ML AMPULE ONE (07:00)
[2018-10-20] MEDS ORDERED: ACETAMINOPHEN 1,000 MG/100 ML RTUPB IV ONE (08:14)
[2018-10-20] MEDS ORDERED: SUGAMMADEX SODIUM 200 MG/2 ML SDV IV ONE (08:15)
[2018-10-20] MEDS ORDERED: LIDOCAINE 1%/EPINEPHRINE INJ 20 ML VIAL ONE (09:25)
[2018-10-20] MEDS ORDERED: DIPHENHYDRAMINE HCL 50 MG/ML VIAL IV PRN (09:35)
[2018-10-20] MEDS ORDERED: MEPERIDINE HCL/PF INJ 25 MG/1 ML DISP.SYRIN IV PRN (09:35)
[2018-10-20] MEDS ORDERED: PROMETHAZINE HCL INJ 25 MG/1 ML VIAL IV PRN ×2 (09:35)
[2018-10-20] MEDS ORDERED: FENTANYL CITRATE INJ/PF 100 MCG/2 ML AMPUL IV PRN ×3 (09:35)
[2018-10-20] MEDS ORDERED: MORPHINE SULFATE 10 MG/ML INJ IV PRN ×2 (09:35→11:07)
[2018-10-20] MEDS ORDERED: ONDANSETRON HCL INJ/PF 4 MG/2 ML SDV IV PRN (09:35)
[2018-10-20] MEDS ORDERED: ESTROGENS,CONJUGATED 0.625 MG/1 GM 30 GM TUBE PV ONE (10:30)
[2018-10-20] MEDS ORDERED: HYDROCODONE/ACETAMINOPHEN 5-325 MG TABLET PO PRN (11:08)
--- NOTE | 2018-10-20 11:28 | OPERATIVE REPORT E ---
Operative Report NAME: KIRTI SEBASTIAN : 1970 AGE: 47Y DATE OF SURGERY: 10/20/2018 ROOM: PREOPERATIVE DIAGNOSIS: Uterovaginal prolapse. POSTOPERATIVE DIAGNOSIS: Uterovaginal prolapse. OPERATION: Robotic-assisted total laparoscopic hysterectomy with uterosacral suspension, anterior repair, and bilateral salpingectomy. SURGEON: ROB YOUNG M.D. CROP SCOUT: Caren Uribe, assistant chief train dispatcher surgical scrub technician ANESTHESIA: Harry Arthur M.D. with general. FINDINGS: Grade 2 uterovaginal prolapse with a 12-week uterus. COMPLICATIONS: None. ESTIMATED BLOOD LOSS: 500 mL. SPECIMENS REMOVED: Uterus, cervix, and bilateral fallopian tubes. PROCEDURE IN DETAIL: The patient was taken to the operating room, prepared and draped in a normal sterile fashion in the dorsal lithotomy position. Under sterile conditions a Monae was placed to gravity. Sterile speculum was placed in the vagina and the cervix was prepped with Betadine. The cervix was grasped on the anterior aspect with a single-tooth tenaculum. The cervix was then prepped with Betadine and the uterus was sounded to approximately 12.5 cm. The cervix was then dilated to accommodate a medium VCare uterine manipulator which was placed without difficulty. The tenaculum and speculum were then removed, gloves were changed, and attention was turned to the upper portion of the case. An umbilical skin incision was made that was approximately 2 cm long and carried through to the underlying layer of fascia with Mayos. The fascia was grasped with 2 Kochers and this was transected using Mayos. The peritoneal cavity was entered sharply also with Mayos. The fascial incision was extended once again using the Mayos and the GelPort was placed without difficulty. The abdomen was inflated with approximately 2 L of CO2 gas. The above findings were noted. Also of note, there was a small amount of the lower large intestine that was adhered minimally to the anterior abdominal wall. Under direct visualization two 5 mm ports were placed approximately 10 cm on either side of the umbilicus. The robot was docked and the vessel sealer and monopolar scissors were placed under direct visualization. I then unscrubbed and sat at the robotic console where, beginning with the adhesions that were obscuring visualization, these were taken down using the monopolar scissors with good hemostasis. Attention was then turned to the hysterectomy portion. The left fallopian tube was grasped and was transected starting at the fimbriated end following the mesosalpinx and removed at the corpus of the uterus. This was then removed by the business office assistant. The utero-ovarian ligament was then transected using the vessel sealer and the uterine artery was skeletonized and transected using the vessel sealer to the level of the VCare cup. The bladder flap was then started using the monopolar scissors and blunt dissection. We then turned our attention to the right adnexa where the fallopian tube was grasped and removed in a similar fashion. The utero-ovarian ligament was also transected and the uterine artery was skeletonized and transected using the vessel sealer with good hemostasis. The bladder flap was completed on this side using the monopolar scissors. The VCare cup was noted through the mucosa, and using this as a guide we began colporrhaphy starting on the anterior aspect and going in a circumferential fashion until the specimen was completely removed. This specimen was then removed through the vagina. Instruments were changed to a Francisco Needle Bet Taker and a ProGrasp. A V-Loc needle was placed through the assistance port and the vaginal cuff was then closed with a couple of suspensory stitches placed through each uterosacral ligament using the V-Loc needle until the cuff was completely closed. The needle was then cut and removed through the assistance port. The ureters were inspected and both found to be peristalsing well. I then rescrubbed and we closed the fascial incision with 0 Vicryl, and the skin was closed at all 3 sites using 4-0 Vicryl. I then turned attention to the vaginal portion of this case where the vagina was carefully inspected. The anesthesiologist was asked to have the patient Valsalva, which they did, with very little prolapse still noted posteriorly. The anterior aspect was still prolapsed, and it was decided at this point that we would proceed with the anterior repair. The mucosa was then hydrodissected using some lidocaine with epinephrine for local anesthesia, and approximately 15 mL was injected in the vesicovaginal mucosa approximately 1 cm below the urethra. The mucosa was then dissected away from the bladder mucosa using some blunt and sharp dissection using Bainbridge. Two support sutures were then placed using 0-Vicryl pop offs. At this point we felt that we had achieved quite a good effect and the excess skin was then trimmed, and the mucosa was reapproximated using 2-0 Vicryl. I reinspected the posterior aspect and felt that this was no longer prolapsing significantly enough for any type of repair and, therefore, it was decided that the posterior repair was not necessary at this point, so the case was concluded. The vagina was packed with a vaginal packing soaked in Premarin cream for healing. The patient tolerated the procedure well. Sponge, lap, and needle counts were correct x2. The Monae catheter remained at the end of the case. The patient was taken to recovery in stable condition. DICTATING PHYSICIAN: ROB YOUNG M.D. [id number] PHY#: [id number] ID: [id number] JOB#: [id number] ACCT: [id number] cc:ROB YOUNG M.D. >
[2018-10-20] MEDS ORDERED: KETOROLAC TROMETHAMINE INJ/PF 30 MG/1 ML SDV IV SCH (14:00)
[2018-10-20] MEDS ORDERED: LIDOCAINE 2% INJ-PF (20 MG/ML) 2 ML AMPUL ONE (14:48)
[2018-10-20] MEDS ORDERED: ONDANSETRON HCL INJ/PF 4 MG/2 ML SDV ONE (14:48)
[2018-10-20] MEDS ORDERED: METOCLOPRAMIDE HCL INJ/PF 10 MG/2 ML SDV ONE (14:48)
[2018-10-20] MEDS ORDERED: KETOROLAC TROMETHAMINE 60 MG/2 ML SDV ONE (14:48)
[2018-10-20] MEDS ORDERED: ROCURONIUM BROMIDE INJ 50 MG/5 ML VIAL IV ONE (14:48)
[2018-10-20] MEDS ORDERED: SUCCINYLCHOLINE CHLORIDE INJ 200 MG/10 ML VIAL ONE (14:48)
[2018-10-20] MEDS ORDERED: GLYCOPYRROLATE 1 MG/5 ML SYRINGE ONE (14:48)
[2018-10-20] MEDS ORDERED: DEXAMETHASONE SOD PHOSPHATE INJ 4 MG/1 ML VIAL ONE (14:48)
[2018-10-20] MEDS: METRONIDAZOLE 500 MG/NS RTU 500 MG/100 ML RTUPB IV SCH (15:03)
[2018-10-20] MEDS ORDERED: ACETAMINOPHEN INJ/PF 1000 MG/100 ML SDV IV ONE (16:00)
[2018-10-20] MEDS: KETOROLAC TROMETHAMINE INJ/PF 30 MG/1 ML SDV IV SCH (19:53)
[2018-10-21] MEDS ORDERED: METRONIDAZOLE 500 MG/NS RTU 500 MG/100 ML RTUPB IV ONE (01:10)
[2018-10-21] MEDS: METRONIDAZOLE 500 MG/NS RTU 500 MG/100 ML RTUPB IV SCH (01:21)
[2018-10-21] MEDS: KETOROLAC TROMETHAMINE INJ/PF 30 MG/1 ML SDV IV SCH (01:21)
[2018-10-21 05:21] LABS: ABSOLUTE LYMPHOCYTES (AUTO) 1.6 10^3/uL (0.5-4.7); ABSOLUTE MONOCYTES (AUTO) 0.6 10^3/uL (0.1-1.4); ABSOLUTE NEUT (AUTO) 9.4 10^3/uL (1.7-8.2); BASOPHILS % (AUTO) 0.4 % (0-2); EOSINOPHILS % (AUTO) 0.1 % (0-6); HEMATOCRIT 32.3 % (36.0-47.0); HEMOGLOBIN 11.1 g/dL (12.0-15.5); LYMPHOCYTES % (AUTO) 13.4 % (13-45); MEAN CORPUSCULAR HEMOGLOBIN 30.1 pg (27.0-33.4); MEAN CORPUSCULAR HGB CONC 34.4 g/dL (32.0-36.0); MEAN CORPUSCULAR VOLUME 88 fl (80-97); MONOCYTES % (AUTO) 5.3 % (3-13); PLATELET COUNT 247 10^3/uL (150-450); RED CELL DISTRIBUTION WIDTH 13.3 % (11.5-14.0); SEGMENTED NEUTROPHILS % (AUTO) 80.8 % (42-78); TOTAL CELLS COUNTED % (AUTO) 100 %; WHITE BLOOD COUNT 11.6 10^3/uL (4.0-10.5)
--- NOTE | 2018-10-21 06:09 | PDOC DISCHARGE SUMMARY ---
General - Admit/Disc Date/PCP Admission Date/Primary Care Provider: MATTHEW SANDERS NP Discharge Date: 10/21/18 - Discharge Diagnosis (1) Uterovaginal prolapse Is this a current diagnosis for this admission?: Yes (2) Overflow stress urinary incontinence in female Is this a current diagnosis for this admission?: Yes - Additional Information Home Medications: Cholecalciferol (Vitamin D3) [Vitamin D3] 5,000 units PO DAILY 10/28/17 Cyanocobalamin (Vitamin B-12) [Vitamin B12] 2,500 mcg PO DAILY 10/28/17 Esomeprazole Magnesium [Nexium 24Hr] 20 mg PO DAILY 10/28/17 Norethindrone-E.estradiol-Iron [Microgestin Fe 1.5-30 Tab] 1 tab PO DAILY 10/28/17 Sumatriptan Succinate [Imitrex 100 mg Tablet] 100 mg PO DAILYP PRN 10/28/17 Triamcinolone Acetonide [Nasacort] 2 spray NASL DAILY 10/28/17 Nadolol [Corgard 40 Mg Tablet] 40 mg PO DAILY 10/14/18 Nortriptyline HCl [Pamelor] 25 mg PO DAILY 10/14/18 Tolterodine Tartrate [Tolterodine Tartrate ER] 2 mg PO DAILY 10/14/18 Venlafaxine HCl [Effexor 25 mg Tablet] 25 mg PO DAILY 10/20/18 History of Present Illness History of Present Illness: KIRTI SEBASTIAN is a 47 year old female Hospital Course Hospital Course: underwent RATLH w/ b/l salpingectomy, uterosacral suspension and anterior v aginal repair. Unremarkable Post operative course. doing well. needs to void Physical Exam - Physical Exam Vital Signs: Temp Pulse Resp BP Pulse Ox 98.7 F 46 L 20 106/60 97 10/21/18 04:10 10/21/18 04:10 10/21/18 04:10 10/21/18 04:10 10/21/18 04:10 Intake & Output 10/19/18 10/20/18 10/21/18 06:59 06:59 06:59 Intake Total 0 4925 Output Total 3225 Balance 0 1700 Weight 115.21 kg General appearance: PRESENT: no acute distress GI/Abdominal exam: PRESENT: soft, tenderness - appropriate for post operative st ate Result Laboratory Results: 10/21/18 05:08 10/14/18 12:09 10/21/18 05:08 WBC 11.6 H RBC 3.70 L Hgb 11.1 L Hct 32.3 L MCV 88 MCH 30.1 MCHC 34.4 RDW 13.3 Plt Count 247 Seg Neutrophils % 80.8 H Lymphocytes % 13.4 Monocytes % 5.3 Eosinophils % 0.1 Basophils % 0.4 Absolute Neutrophils 9.4 H Absolute Lymphocytes 1.6 Absolute Monocytes 0.6 Absolute Eosinophils 0.0 Absolute Basophils 0.0 Impressions: Chest X-Ray 10/14/18 00:00 IMPRESSION: NO SIGNIFICANT RADIOGRAPHIC FINDING IN THE CHEST. Plan Discharge Plan: plan for discharge to home upon ability to void. Will f/u as scheduled. strict pain fever and bleeding precautuions. Time Spent: Less than 30 Minutes
[2018-10-21 08:43] VITALS: BP 113/60
[2018-10-21] MEDS ORDERED: IBUPROFEN 800 MG TABLET PO PRN (14:00)
== END 2018-10-21 09:05 | disposition home or self-care (01) ==
LOC: OROUT 05:30 → 2S 11:25 → OROUT 10-21 09:05
PROVIDERS: ATTEND Obstetrics & Gynecology
DX: N81.4 Uterovaginal prolapse, unspecified (principal); I10 Essential (primary) hypertension; Z87.891 Personal history of nicotine dependence; Z88.0 Allergy status to penicillin; D64.9 Anemia, unspecified; N72 Inflammatory disease of cervix uteri; D25.1 Intramural leiomyoma of uterus
CPT/HCPCS: 57240; 57283; 58573; 93005; 93010; S2900; 36415; 71046; 80053; 81001; 81025; 840; 85025; 85027; 86850; 86900; 86901; J0131; J0330; J0690; J1100; J1885; J2250; J2270; J2405; J2704; J2765; J3010; J3490; J7120

== ENCOUNTER → 2018-12-07 | Outpatient (CLI) | payer BC ==
[2018-12-09 07:50] LABS: RUBELLA IGG AB 1.81 index (Immune >0.); RUBEOLA IGG AB >300.0 AU/mL (Immune >29); VARICELLA ZOSTER IGG AB 1086 index (Immune >16)
[2018-12-09 12:33] LABS: HEPATITIS B SURFACE AB QUANT 13.5 mIU/mL (Immunity>9)
== END ==
LOC: OD 15:57
PROVIDERS: ATTEND Nurse Practitioner
DX: Z01.84 Encounter for antibody response examination (principal)
CPT/HCPCS: 36415; 86317; 86735; 86762; 86765; 86787

== ENCOUNTER → 2020-04-19 | Outpatient (CLI) | payer BC ==
--- NOTE | 2020-04-19 12:53 | WOMENS IMAGING REPORT ---
EXAM DESCRIPTION: 3D SCREENING MAMMO BILAT IMAGES COMPLETED DATE/TIME: 04/19/2020 10:13 am REASON FOR STUDY: Z12.31 ENCOUNTER FOR SCREENING MAMMOGRAM FOR MALIGNANT NEOPLASM OF BREAST Z12.31 ENCNTR SCREEN MAMMOGRAM FOR MALIGNANT NEOPLASM OF SILVIA COMPARISON: 2013, 2017. EXAM PARAMETERS: Standard craniocaudal and mediolateral oblique views of each breast recorded using digital acquisition and breast tomosynthesis. Read with the assistance of CAD. .[facility] Imaging - R2 Cenova Version 2.1 LIMITATIONS: None. FINDINGS: Findings present which are benign by mammographic criteria. No suspicious masses, calcific ations or architectural distortion. Pertinent benign findings: Partially circumscribed densities and at least 1 small mass in the right b reast, stable compared to 2014. Benign mammographic findings may include one or more of the following: Smooth masses, popcorn/rim/coa rse calcifications, asymmetries, post-procedure changes, and lesions with long-standing stability. IMPRESSION: BENIGN MAMMOGRAPHIC FINDINGS. BIRADS 2 BREAST DENSITY: c. The breasts are heterogeneously dense, which may obscure small masses. BIRAD: ASSESSMENT: 2 BENIGN FINDING(S) RECOMMENDATION: ROUTINE SCREENING COMMENT: The patient has been notified of the results by letter per MQSA requirements. Additional no tification policies are in place for contacting patient with suspicious or incomplete findings. Quality ID #[id number]: The [employer] recommends an annual screening mammogram for women aged 40 years or over. This facility utilizes a reminder system to ensure that all patients receive reminder letters, and/or direct phone calls for appointments. This includes reminders for routine scr eening mammograms, diagnostic mammograms, or other Breast Imaging Interventions when appropriate. Th is patient will be placed in the appropriate reminder system. TECHNICAL DOCUMENTATION: FINDING NUMBER: (1) ASSESSMENT: (1) JOB ID: [id number] 2010 [employer]- All Rights Reserved Reading location - IP/workstation name: [email or web address]
== END ==
LOC: EDSTATUS → WI 09:37
PROVIDERS: ATTEND Nurse Practitioner
DX: Z12.31 Encounter for screening mammogram for malignant neoplasm of breast (principal)
CPT/HCPCS: 77063; 77067